=== PATIENT | female | born 1945 | race Caucasian/White ===

== ENCOUNTER 2017-04-02 10:15 | Outpatient (CLI) | payer MEDICARE ==
--- NOTE | 2017-04-02 12:59 | RAD ---
CERVICAL SPINE SEVEN VIEWS: History: 72-year-old female with neck pain for many months. FINDINGS: Exam includes right and left oblique views and flexion and extension lateral views. There is very severe multilevel disc osteophytosis and facet arthrosis, evidence for severe spondylo sis. There is approximately 0.4 cm stable anterolisthesis of C4 on C5. Marked narrowing of C5-6 and C6-7 disc spaces. No prevertebral soft tissue swelling. There is moderate multilevel bony foraminal narrowing from severe uncal vertebral and facet arthrosis changes. IMPRESSION: Severe cervical spondylosis. Anterolisthesis of C4 on C5 of approximately 0.4 cm without significant abnormal translation between flexion and extension. Markedly narrowed C5-6 and C6-7. Multilevel lu iable severity foraminal stenosis. Consider follow up MRI for further evaluation. POS: [facility]
--- NOTE | 2017-04-02 13:21 | RAD ---
LUMBAR SPINE SEVEN VIEWS: History: 72-year-old female with low back pain without trauma. FINDINGS: Exam included flexion and extension lateral views and oblique views. There is severe multilevel disc narrowing and severe disc osteophytosis of the entire lumbar spine a s well as very severe facet arthrosis. There is minimal stable anterolisthesis of L4 on L5 and retro listhesis of L2 on L3 without evidence for abnormal translation between flexion and extension. No ev idence for acute compression fracture or significant malalignment. IMPRESSION: Severe spondylosis. No evidence for significant abnormality translation between flexion and extensio n. POS: [facility]
== END 2017-04-02 10:16 | disposition home or self-care (01) ==
LOC: NAV RAD 10:15
DX: M54.5 Low back pain (principal); M54.2 Cervicalgia; M48.02 Spinal stenosis, cervical region; M47.816 Spondylosis without myelopathy or radiculopathy, lumbar region; M47.812 Spondylosis without myelopathy or radiculopathy, cervical region
CPT/HCPCS: 72052; 72100

== ENCOUNTER 2019-01-28 11:47 | Outpatient (CLI) | payer MEDICARE ==
--- NOTE | 2019-01-28 12:42 | RAD ---
2 VIEWS RIGHT HIP: Date: 01/28/19 COMPARISON: None. HISTORY: Joint pain. FINDINGS: There is mild/moderate superior joint space narrowing involving the right hip with mild right lateral acetabular osteophyte formation. There is prominent lower lumbar spine degenerative change with mult ilevel disc space narrowing, osteophyte formation, and vacuum disc formation. No displaced fracture o r dislocation. IMPRESSION: Chronic findings as detailed above. POS: [facility]
--- NOTE | 2019-01-28 12:47 | RAD ---
5 VIEWS LUMBAR SPINE: Date: 01/28/19 COMPARISON: None. HISTORY: Sacroiliac joint pain, back pain. FINDINGS: Five lumbar-type vertebral bodies are present with intact pedicles on frontal imaging. There is promi nent multilevel disc space narrowing with degenerative end plate change, as well as lateral and anter ior osteophyte formation, and multilevel vacuum disc formation. Oblique imaging demonstrates no evide nce for a discrete pars defect on either side at any level. There is severe multilevel facet hypertrophy throughout the lumbar spine. At L4-5, there is anterolis thesis measuring 5 mm. Prominent anterior osteophyte formation noted at L1-2, L2-3, and L5-S1. No acu te fracture. IMPRESSION: Severe degenerative change. No acute osseous abnormality. POS: OFF
== END 2019-01-28 11:48 | disposition home or self-care (01) ==
LOC: NAV RAD 11:47
PROVIDERS: ATTEND Family Medicine
DX: M53.3 Sacrococcygeal disorders, not elsewhere classified (principal); M47.816 Spondylosis without myelopathy or radiculopathy, lumbar region; M25.751 Osteophyte, right hip; M51.36 Other intervertebral disc degeneration, lumbar region; M25.78 Osteophyte, vertebrae; M25.851 Other specified joint disorders, right hip
CPT/HCPCS: 72110

== ENCOUNTER 2024-02-08 18:37 | Emergency (ER) | payer OTHER ==
[2024-02-08 20:09] LABS: Bilirubin Negative (Negative); Blood, Urine Negative (Negative); Clarity Clear (Clear); Glucose, Urine (Dipstick) Negative (Negative); Ketone, Urine Negative (Negative); Leukocyte Negative (Negative); Nitrite Negative (Negative); Protein, Urine (Dipstick) Negative (Neg-Trace); Specific Gravity, Urine 1.015 (1.005-1.030); Urobilinogen 0.2 mg/dL (Less than 2)
[2024-02-08 20:16] LABS: Bacteria/HPF 1+ HPF (None Seen); CAUTI Indications for Culture Dysuria,urgency,freq; Squamous Epithelial 0-3 HPF (0-3); WBC/HPF 0-3 HPF (0-3)
[2024-02-08 20:17] LABS: Urine Culture Reflex No No
[2024-02-08 20:18] LABS: #Basophils 0.1 thou/uL (0.0-0.2); #Eosinphils 0.2 thou/uL (0.0-0.7); #Lymphocytes 1.9 thou/uL (1.20-3.40); #Monocytes 0.6 thou/uL (0.11-0.59); #Neutrophils 4.4 thou/uL (1.40-6.50); %Lymphocytes 25.9 % (21.0-51.0); %Monocytes 8.6 % (0.0-10.0); %Neutrophils 60.5 % (42.0-75.0); Hematocrit 42.8 % (36.0-47.0); Hemoglobin 13.8 g/dL (12.0-16.0); Mean Corpuscular HGB CONC 32.3 g/dL (32.0-36.0); Mean Corpuscular Hemoglobin 29.3 pg (27.0-31.0); Mean Corpuscular Volume 90.5 fl (78.0-98.0); Mean Platelet Volume 8.3 fL (7.4-10.4); Platelet Count 184 10x3/uL (130-400); RBC Distribution Width 10.8 % (11.5-14.5); Red Blood Cell (RBC) Count 4.72 mill/uL (4.20-5.40); White Blood Cell (WBC) Count 7.3 10x3/uL (4.8-10.8)
[2024-02-08 20:31] LABS: ALT (SGPT) 10 U/L (8-55); AST (SGOT) 16 U/L (5-34); Albumin 3.9 g/dL (3.4-4.8); Alkaline Phosphatase 77 U/L (40-110); Anion Gap 17 mmol/L (10-20); BUN (Urea Nitrogen) 21 mg/dL (9.8-20.1); Calc. Creatinine Clearance 0 mL/min (70-130); Calcium 9.6 mg/dL (7.8-10.44); Carbon Dioxide 21 mmol/L (23-31); Chloride 105 mmol/L (98-107); Estimated GFR 43; Globulin 3.5 g/dL (2.4-3.5); Glucose 99 mg/dL (83-110); Potassium 4.2 mmol/L (3.5-5.1); Protein, Total 7.4 g/dL (5.8-8.1); Sodium 139 mmol/L (136-145)
[2024-02-08 20:35] LABS: Troponin I Less than 0.010 ng/mL (< 0.028)
== END 2024-02-08 21:28 | disposition home or self-care (01) ==
LOC: NAV ERS 18:37
DX: H65.91 Unspecified nonsuppurative otitis media, right ear (principal); I10 Essential (primary) hypertension; G44.209 Tension-type headache, unspecified, not intractable
CPT/HCPCS: 80053; 81001; 84484; 85025; 93005

== ENCOUNTER 2024-04-06 11:46 | Emergency (ER) | payer OTHER ==
[2024-04-06] MEDS ORDERED: Ondansetron PF 4 MG/2 ML Vial ONE (12:15)
[2024-04-06] MEDS ORDERED: Ketorolac Tromethamine 30 MG (1 mL) VIAL ONE (12:15)
[2024-04-06 12:46] LABS: #Basophils 0.1 thou/uL (0.0-0.2); #Eosinophils 0.1 thou/uL (0.0-0.7); #Lymphocytes 1.4 thou/uL (1.20-3.40); #Monocytes 0.7 thou/uL (0.11-0.59); #Neutrophils 6.6 thou/uL (1.40-6.50); %Basophils 1.4 % (0.0-1.0); %Lymphocytes 15.8 % (21.0-51.0); %Monocytes 8.2 % (0.0-10.0); %Neutrophils 73.6 % (42.0-75.0); Hemoglobin 13.3 g/dL (12.0-16.0); Mean Corpuscular HGB CONC 34.1 g/dL (32.0-36.0); Mean Corpuscular Hemoglobin 30.9 pg (27.0-31.0); Mean Corpuscular Volume 90.8 fl (78.0-98.0); Mean Platelet Volume 8.3 fL (7.4-10.4); Platelet Count 233 10x3/uL (130-400); RBC Distribution Width 11.1 % (11.5-14.5); White Blood Cell (WBC) Count 8.9 10x3/uL (4.8-10.8)
[2024-04-06 13:04] LABS: Troponin I Less than 0.010 ng/mL (< 0.028)
[2024-04-06 13:05] LABS: ALT (SGPT) 17 U/L (8-55); AST (SGOT) 21 U/L (5-34); Alkaline Phosphatase 68 U/L (40-110); Anion Gap 17 mmol/L (10-20); BUN (Urea Nitrogen) 29 mg/dL (9.8-20.1); Bilirubin, Total 0.9 mg/dL (0.2-1.2); Calc. Creatinine Clearance 0 mL/min (70-130); Carbon Dioxide 19 mmol/L (23-31); Chloride 105 mmol/L (98-107); Estimated GFR 31; Globulin 3.9 g/dL (2.4-3.5); Glucose 110 mg/dL (83-110); Potassium 4.5 mmol/L (3.5-5.1); Protein, Total 7.9 g/dL (5.8-8.1); Sodium 136 mmol/L (136-145)
[2024-04-06 13:13] LABS: Bilirubin Negative (Negative); Blood, Urine Negative (Negative); Clarity Clear (Clear); Glucose, Urine (Dipstick) 100 mg/dL (Negative); Ketone, Urine Negative (Negative); Leukocyte Negative (Negative); Nitrite Positive (Negative); Protein, Urine (Dipstick) Negative (Neg-Trace); pH, Urine 5.5 (5.0-9.0)
[2024-04-06] MEDS ORDERED: Sulfameth/Trimethoprim DS 800-160mg TAB ONE (14:38)
== END 2024-04-06 14:50 | disposition home or self-care (01) ==
LOC: NAV ERS 11:46
DX: N10 Acute pyelonephritis (principal); I10 Essential (primary) hypertension; Z79.899 Other long term (current) drug therapy
CPT/HCPCS: 71045; 80053; 81003; 83605; 83880; 84484; 85025; 93005; 94760; J1885; J2405; 96361; 96374; 96375

== ENCOUNTER 2024-04-17 15:51 | Inpatient (IN) | payer OTHER ==
[2024-04-17] MEDS ORDERED: Bisacodyl 5 MG TAB PO PRN (18:54)
[2024-04-17 20:17] VITALS: BMI 43.9
[2024-04-17] MEDS: Losartan 25 MG TAB PO SCH (22:33)
[2024-04-17] MEDS: Amoxicillin/Potassium Clav 875 MG TAB PO SCH (22:33)
[2024-04-17] MEDS: Melatonin 3 MG TAB PO SCH (22:34)
[2024-04-17] MEDS: Famotidine 20 MG TAB PO SCH (22:34)
[2024-04-17] MEDS: Mirtazapine 30 MG TAB PO SCH (22:36)
[2024-04-17] MEDS: Acetaminophen 325 MG TAB PO PRN (23:05)
[2024-04-18 06:28] LABS: #Basophils 0.2 thou/uL (0.0-0.2); #Eosinophils 0.3 thou/uL (0.0-0.7); #Lymphocytes 1.8 thou/uL (1.20-3.40); #Monocytes 0.9 thou/uL (0.11-0.59); #Neutrophils 4.4 thou/uL (1.40-6.50); %Basophils 2.1 % (0.0-1.0); %Eosinophils 4.1 % (0.0-10.0); %Lymphocytes 24.9 % (21.0-51.0); %Monocytes 11.4 % (0.0-10.0); %Neutrophils 57.5 % (42.0-75.0); Hematocrit 34.5 % (36.0-47.0); Hemoglobin 11.5 g/dL (12.0-16.0); Mean Corpuscular HGB CONC 33.2 g/dL (32.0-36.0); Mean Corpuscular Hemoglobin 30.6 pg (27.0-31.0); Platelet Count 181 10x3/uL (130-400); RBC Distribution Width 10.7 % (11.5-14.5); Red Blood Cell (RBC) Count 3.75 mill/uL (4.20-5.40); White Blood Cell (WBC) Count 7.7 10x3/uL (4.8-10.8)
[2024-04-18 06:45] LABS: ALT (SGPT) 13 U/L (8-55); AST (SGOT) 12 U/L (5-34); Albumin 2.7 g/dL (3.4-4.8); Alkaline Phosphatase 48 U/L (40-110); Anion Gap 12 mmol/L (10-20); BUN (Urea Nitrogen) 25 mg/dL (9.8-20.1); Bilirubin, Total 0.6 mg/dL (0.2-1.2); Calc. Creatinine Clearance 57 mL/min (70-130); Calcium 8.5 mg/dL (7.8-10.44); Carbon Dioxide 22 mmol/L (23-31); Chloride 109 mmol/L (98-107); Estimated GFR 40; Globulin 3.5 g/dL (2.4-3.5); Glucose 92 mg/dL (83-110); Potassium 4.1 mmol/L (3.5-5.1); Protein, Total 6.2 g/dL (5.8-8.1); Sodium 139 mmol/L (136-145)
[2024-04-18] MEDS ORDERED: metFORMIN 500 MG TAB PO SCH (08:00)
[2024-04-18] MEDS ORDERED: Ferrous Sulfate 325 MG TAB PO SCH (08:00)
[2024-04-18] MEDS: Aspirin Chewable 81 MG TAB PO SCH (08:47)
[2024-04-18] MEDS: Clopidogrel Bisulfate 75 MG TAB PO SCH (08:49)
[2024-04-18] MEDS: Pantoprazole DR 40 MG TAB PO SCH (08:49)
[2024-04-18] MEDS: Ciprofloxacin 500 MG TAB PO SCH (08:49)
[2024-04-18] MEDS: Polyethylene Glycol 3350 17 GM Packet PO SCH (08:50)
[2024-04-18] MEDS: Methocarbamol 500 MG TAB PO PRN (08:57)
[2024-04-18] MEDS: Diclofenac 1% 50 GM TOPICAL GEL TP SCH (08:58)
[2024-04-18] MEDS ORDERED: Dicyclomine 20 MG TAB PO SCH (09:00)
[2024-04-18] MEDS ORDERED: Rosuvastatin 10 MG TAB PO SCH (09:00)
[2024-04-18] MEDS: FLU (Fluad Triv) TS24-25 (65UP)/MF59C/PF 45 MCG/0.5 ML Syringe IM ONE (09:02)
[2024-04-18] MEDS: Amlodipine 5 MG TAB PO SCH (09:03)
[2024-04-18] MEDS: Atorvastatin Calcium 20 MG TAB PO SCH (09:06)
[2024-04-18] MEDS ORDERED: Polyethylene Glycol 3350 17 GM Packet PO PRN (10:09)
[2024-04-18] MEDS: Diclofenac 1% 100 GM Topical GEL TP SCH ×2 (10:10→13:28)
[2024-04-19] MEDS: Lisinopril 5 MG TAB PO SCH (09:43)
[2024-04-19] MEDS: Ondansetron ODT 4 MG TAB PO PRN (09:46)
[2024-04-19 12:07] VITALS: BMI 43.9
[2024-04-20] MEDS: Senokot S 8.6-50 MG TAB PO PRN (06:24)
[2024-04-20] MEDS: Ketoconazole 2% Cream 15 gm Tube TOP SCH (09:02)
[2024-04-21 06:09] LABS: ALT (SGPT) 12 U/L (8-55); AST (SGOT) 14 U/L (5-34); Albumin 2.8 g/dL (3.4-4.8); Alkaline Phosphatase 53 U/L (40-110); Anion Gap 11 mmol/L (10-20); BUN (Urea Nitrogen) 30 mg/dL (9.8-20.1); Bilirubin, Total 0.3 mg/dL (0.2-1.2); Calc. Creatinine Clearance 51 mL/min (70-130); Calcium 8.2 mg/dL (7.8-10.44); Carbon Dioxide 24 mmol/L (23-31); Chloride 109 mmol/L (98-107); Estimated GFR 35; Globulin 3.1 g/dL (2.4-3.5); Glucose 89 mg/dL (83-110); Potassium 4.3 mmol/L (3.5-5.1); Protein, Total 5.9 g/dL (5.8-8.1); Sodium 140 mmol/L (136-145)
[2024-04-23 08:07] VITALS: BP 131/73; TEMP 97.5
== END 2024-04-23 12:45 | disposition home or self-care (01) | DRG 948 ==
LOC: NAV ACUTE 18:17
PROVIDERS: ADMIT Family Medicine; ATTEND Family Medicine
DX: R53.81 Other malaise (principal); N39.0 Urinary tract infection, site not specified; N31.9 Neuromuscular dysfunction of bladder, unspecified; I25.10 Atherosclerotic heart disease of native coronary artery without angina pectoris; Z95.1 Presence of aortocoronary bypass graft; M54.16 Radiculopathy, lumbar region; L30.4 Erythema intertrigo; Z66 Do not resuscitate; M48.062 Spinal stenosis, lumbar region with neurogenic claudication; N18.9 Chronic kidney disease, unspecified; I12.9 Hypertensive chronic kidney disease with stage 1 through stage 4 chronic kidney disease, or unspecified chronic kidney disease; Z90.49 Acquired absence of other specified parts of digestive tract; Z90.710 Acquired absence of both cervix and uterus; Z79.899 Other long term (current) drug therapy; Z79.82 Long term (current) use of aspirin
CPT/HCPCS: 36415; 80053; 85025; Q0162